=== PATIENT | female | born 1965 | race Caucasian/White ===

== ENCOUNTER → 2019-07-15 | Outpatient (REF) | payer BC ==
[2019-07-15 19:58] LABS: BASO # 0.1 10^3/uL (0.0-0.2); BASO % 0.5 % (0.0-1.0); EOS # 0.3 10^3/uL (0.0-0.5); EOS % 2.2 % (0.0-3.0); HEMATOCRIT 37.6 % (36.0-47.0); HEMOGLOBIN 12.4 g/dl (12.0-15.5); LYMPH # 2.8 10^3/uL (1.5-5.0); LYMPH % 22.4 % (24.0-44.0); MEAN CORPUSCULAR HEMOGLOBIN 33.8 pg (27.0-33.0); MEAN CORPUSCULAR VOLUME 102.5 fl (80.0-96.0); MONO # 1.5 10^3/uL (0.0-0.8); MONO % 11.7 % (0.0-5.0); NEUTROPHILS % 62.7 % (36.0-66.0); PLATELET COUNT, AUTOMATED 272 10^3/uL (150-450); RED BLOOD COUNT 3.67 10^6/uL (4.00-5.40); WHITE BLOOD COUNT 12.7 10^3/uL (4.0-10.0)
[2019-07-15 20:02] LABS: ALBUMIN 3.5 GM/DL (3.2-5.2); BLOOD UREA NITROGEN 11 MG/DL (7-18); CALCIUM LEVEL 8.8 MG/DL (8.5-10.1); CARBON DIOXIDE LEVEL 27 MEQ/L (21-32); CHLORIDE LEVEL 101 MEQ/L (98-107); CREATININE FOR GFR 0.74 MG/DL (0.55-1.30); GLOMERULAR FILTRATION RATE > 60.0 (>51); GLUCOSE, FASTING 84 MG/DL (70-100); PHOSPHORUS LEVEL 3.8 MG/DL (2.5-4.9); SODIUM LEVEL 136 MEQ/L (136-145)
== END ==
LOC: M LAB REF 08:41
PROVIDERS: ATTEND Physician Assistant
DX: I10 Essential (primary) hypertension (principal)

== ENCOUNTER → 2021-12-23 | Outpatient (REF) | payer BC ==
[2021-12-23 12:54] LABS: BASO # 0.1 10^3/uL (0.0-0.2); BASO % 0.6 % (0.0-1.0); EOS # 0.1 10^3/uL (0.0-0.5); EOS % 0.9 % (0.0-3.0); HEMATOCRIT 44.7 % (36.0-47.0); HEMOGLOBIN 14.7 g/dl (12.0-15.5); LYMPH % 20.9 % (24.0-44.0); MEAN CORPUSCULAR HEMOGLOBIN 34.8 pg (27.0-33.0); MEAN CORPUSCULAR HGB CONC 32.9 g/dl (32.0-36.5); MEAN CORPUSCULAR VOLUME 105.7 fl (80.0-96.0); MONO # 0.9 10^3/uL (0.0-0.8); MONO % 9.4 % (2.0-8.0); NEUTROPHILS # 6.5 10^3/uL (1.5-8.5); NEUTROPHILS % 67.8 % (36.0-66.0); PLATELET COUNT, AUTOMATED 223 10^3/uL (150-450); RED BLOOD COUNT 4.23 10^6/uL (4.00-5.40); WHITE BLOOD COUNT 9.6 10^3/uL (4.0-10.0)
[2021-12-23 13:15] LABS: HEMOGLOBIN A1c 5.1 %
[2021-12-23 13:32] LABS: ALBUMIN 4.1 GM/DL (3.2-5.2); ALT/SGPT 53 U/L (12-78); BILIRUBIN,TOTAL 1.3 MG/DL (0.2-1.0); BLOOD UREA NITROGEN 7 MG/DL (7-18); CALCIUM LEVEL 10.2 MG/DL (8.5-10.1); CARBON DIOXIDE LEVEL 30 MEQ/L (21-32); CHLORIDE LEVEL 104 MEQ/L (98-107); CHOLESTEROL LEVEL 239 MG/DL (<200); CHOLESTEROL RISK RATIO 5.195 (<5); CREATININE FOR GFR 0.62 MG/DL (0.55-1.30); FREE T4 1.26 NG/DL (0.76-1.46); GLOMERULAR FILTRATION RATE > 60.0 (>51); GLUCOSE, FASTING 105 MG/DL (70-100); HDL CHOLESTEROL 46 MG/DL (>40); LDL CHOLESTEROL 163 MG/DL (<100); NON-HDL-C 193 MG/DL; POTASSIUM SERUM 4.5 MEQ/L (3.5-5.1); SODIUM LEVEL 138 MEQ/L (136-145); TOTAL PROTEIN 7.9 GM/DL (6.4-8.2); TRIGLYCERIDES LEVEL 149 MG/DL (<150)
[2021-12-23 13:38] LABS: FOLATE 8.5 NG/ML; VITAMIN B12 LEVEL 269 PG/ML
== END ==
LOC: M SFHCPLAZ 10:21
PROVIDERS: ATTEND Physician Assistant
DX: I10 Essential (primary) hypertension (principal); Z13.1 Encounter for screening for diabetes mellitus; F10.10 Alcohol abuse, uncomplicated; E66.3 Overweight; Z13.220 Encounter for screening for lipoid disorders

== ENCOUNTER → 2022-02-16 | Outpatient (CLI) | payer BC | LOC: M RAD 10:13 | PROVIDERS: ATTEND Physician Assistant | DX: F10.10 Alcohol abuse, uncomplicated (principal) ==

== ENCOUNTER → 2022-03-27 | Outpatient (REF) | payer BC | LOC: M SFHCDERM 18:08 | PROVIDERS: ATTEND Nurse Practitioner Family | DX: D22.39 Melanocytic nevi of other parts of face (principal) ==

== ENCOUNTER → 2022-08-24 | Outpatient (REF) | payer BC ==
[2022-08-24 21:15] LABS: APPEARANCE, URINE MANUAL CLOUDY (CLEAR); COLOR, URINE MANUAL YELLOW (YELLOW)
[2022-08-24 21:17] LABS: BILIRUBIN, URINE MANUAL NEGATIVE (NEGATIVE); BLOOD URINE MANUAL POSITIVE (NEGATIVE); GLUCOSE, URINE (UA) MANUAL NEGATIVE (NEGATIVE); KETONE, URINE MANUAL NEGATIVE (NEGATIVE); LEUKOCYTE ESTERASE, URINE MAN TRACE (NEGATIVE); NITRITE, URINE MANUAL NEGATIVE (NEGATIVE); PROTEIN, URINE MANUAL TRACE mg/dL (NEGATIVE); SPECIFIC GRAVITY,URINE MANUAL 1.019 (1.002-1.035); UROBILINOGEN, URINE MANUAL 1 MG mg/dl (NORMAL)
[2022-08-24 21:24] LABS: RBC, URINE 40-50 /hpf (0-3)
[2022-08-24 21:26] LABS: BACTERIA, URINE SMALL AMOUNT; HYALINE CAST, URINE NONE SEEN /lpf (0-1); MUCUS, URINE LARGE AMOUNT (NEGATIVE); SQUAMOUS EPITHELIAL CELL URINE SMALL AMOUNT /hpf (SMALL AMT)
== END ==
LOC: M LAB REF 21:04
PROVIDERS: ATTEND Physician Assistant
DX: R31.29 Other microscopic hematuria (principal)

== ENCOUNTER → 2022-10-18 | Outpatient (REF) | payer BC ==
[2022-10-18 16:48] LABS: BLOOD UREA NITROGEN 7 MG/DL (9-23); CALCIUM LEVEL 9.1 MG/DL (8.5-10.1); CARBON DIOXIDE LEVEL 26 MMOL/L (20-31); CHLORIDE LEVEL 102 MMOL/L (98-107); CREATININE FOR GFR 0.48 MG/DL (0.55-1.30); GLOMERULAR FILTRATION RATE > 60.0 (>51); GLUCOSE, FASTING 83 MG/DL (60-100); POTASSIUM SERUM 3.6 MMOL/L (3.5-5.1); SODIUM LEVEL 142 MMOL/L (136-145)
== END ==
LOC: M SFHCADAM 11:33
PROVIDERS: ATTEND Nurse Practitioner Women's Health
DX: R31.29 Other microscopic hematuria (principal)

== ENCOUNTER → 2022-11-14 | Outpatient (REF) | payer BC | LOC: M SMT 17:08 | PROVIDERS: ATTEND Urology | DX: R82.89 Other abnormal findings on cytological and histological examination of urine (principal); R31.29 Other microscopic hematuria ==

== ENCOUNTER → 2022-11-29 | Outpatient (CLI) | payer BC ==
[~2022-11-29] MED LIST: ISOVUE-370 76% 100ML VIAL As Ordered ONE
== END ==
LOC: M RAD 09:20
PROVIDERS: ATTEND Nurse Practitioner Women's Health
DX: R31.9 Hematuria, unspecified (principal)

== ENCOUNTER → 2022-12-26 | Outpatient (CLI) | payer BC ==
[2022-12-26 14:20] LABS: HEMATOCRIT 43.7 % (36.0-47.0); HEMOGLOBIN 14.7 g/dl (12.0-15.5); MEAN CORPUSCULAR HGB CONC 33.6 g/dl (32.0-36.5); MEAN CORPUSCULAR VOLUME 107.1 fl (80.0-96.0); PLATELET COUNT, AUTOMATED 230 10^3/uL (150-450); RED BLOOD COUNT 4.08 10^6/uL (4.00-5.40); WHITE BLOOD COUNT 11.1 10^3/uL (4.0-10.0)
[2022-12-26 14:32] LABS: INR 1.16
[2022-12-26 14:51] LABS: ALBUMIN 3.8 G/DL (3.2-5.2); ALKALINE PHOSPHATASE 162 U/L (46-116); ALT/SGPT 54 U/L (7.0-40); AST/SGOT 145 U/L (<34); BILIRUBIN,TOTAL 1.7 MG/DL (0.3-1.2); BLOOD UREA NITROGEN 6 MG/DL (9-23); CARBON DIOXIDE LEVEL 26 MMOL/L (20-31); CHLORIDE LEVEL 103 MMOL/L (98-107); CREATININE FOR GFR 0.44 MG/DL (0.55-1.30); GLOMERULAR FILTRATION RATE > 60.0 (>51); GLUCOSE, FASTING 85 MG/DL (60-100); POTASSIUM SERUM 4.1 MMOL/L (3.5-5.1); SODIUM LEVEL 139 MMOL/L (136-145); TOTAL PROTEIN 6.9 G/DL (5.7-8.2)
== END ==
LOC: M RAD 13:24
PROVIDERS: ATTEND Urology
DX: N20.0 Calculus of kidney (principal)

== ENCOUNTER → 2023-01-04 | Outpatient (REF) | payer BC ==
[~2023-01-04] MED LIST changes: +AMLO1TAB24; -ISOVUE-370 76% 100ML VIAL As Ordered ONE; +METO50TA7
== END ==
LOC: M SFHCADAM 13:32
PROVIDERS: ATTEND Family Medicine
DX: K70.0 Alcoholic fatty liver (principal)

== ENCOUNTER → 2023-01-08 | Outpatient (REF) | payer BC, MEDICAID ==
[~2023-01-08] MED LIST changes: +FLOM0.4C39 PO
== END ==
LOC: M SFHCADAM 15:03
PROVIDERS: ATTEND Urology
DX: N20.0 Calculus of kidney (principal)

== ENCOUNTER 2023-01-11 08:42 | Day surgery (SDC) | payer BC ==
[~2023-01-11] VITALS: Ht 167.6 cm; Wt 70.7 kg
[~2023-01-11 08:42] MED LIST changes: -FLOM0.4C39 PO; +ceFAZolin SOD 2 GM in IV 1 EA IV ONE
[2023-01-11] MEDS ORDERED: LR 1,000 ML IV SCH ×2 (09:55→12:15)
[2023-01-11] MEDS ORDERED: LIDOCAINE 2% 5ML JELLY UROJET As Ordered ONE (10:53)
[2023-01-11] MEDS ORDERED: fentaNYL 100 MCG/2 ML INJECTION As Ordered ONE (10:57)
[2023-01-11] MEDS ORDERED: MIDAZOLAM INJ 2MG/2ML VIAL As Ordered ONE (10:58)
[2023-01-11] MEDS ORDERED: ACETAMINOPHEN 1000MG 100ML IV BAG As Ordered ONE (10:58)
[2023-01-11] MEDS ORDERED: ONDANSETRON 4MG 2ML VIAL As Ordered ONE (10:58)
[2023-01-11] MEDS ORDERED: LIDOCAINE 2% 100MG/5ML SDV (FOR ANES.) As Ordered ONE (10:59)
[2023-01-11] MEDS ORDERED: FLOM0.4C39 PO (11:53)
[2023-01-11] MEDS ORDERED: KETOROLAC 60MG 2ML VIAL As Ordered ONE (12:01)
[2023-01-11] MEDS ORDERED: MORPHINE 2 MG/ML 1ML VIAL IV PRN (12:15)
[2023-01-11] MEDS ORDERED: METOCLOPRAMIDE INJ 10MG/2ML VIAL IV PRN (12:15)
[2023-01-11] MEDS ORDERED: oxyCODONE 5MG TAB PO PRN (12:15)
[2023-01-11] MEDS ORDERED: ONDANSETRON 4MG 2ML VIAL IV PRN (12:15)
[2023-01-11] MEDS ORDERED: LABETALOL 100MG/20ML VIAL As Ordered ONE (12:26)
[2023-01-11] MEDS ORDERED: LABETALOL 100MG/20ML VIAL IV ONE (12:45)
[2023-01-11 14:00] VITALS: BP 182/100
== END 2023-01-11 14:00 | disposition home or self-care (01) ==
LOC: M SDC 08:42
PROVIDERS: ATTEND Urology
DX: N20.0 Calculus of kidney (principal); I10 Essential (primary) hypertension; F41.9 Anxiety disorder, unspecified; Z79.899 Other long term (current) drug therapy; F12.10 Cannabis abuse, uncomplicated
CPT/HCPCS: 50590; 52332; 74018; C1769; C2617; J0131; J1100; J1885; J2250; J2405; J3010

== ENCOUNTER → 2023-02-28 | Outpatient (CLI) | payer BC ==
[~2023-02-28] MED LIST changes: +FLOM0.4C39 PO; -ceFAZolin SOD 2 GM in IV 1 EA IV ONE
== END ==
LOC: M RAD 14:59
PROVIDERS: ATTEND Urology
DX: N20.0 Calculus of kidney (principal)

== ENCOUNTER → 2024-07-24 | Outpatient (CLI) | payer BC, MEDICAID, OTHER ==
[2024-07-24 13:18] LABS: BASO # 0.1 10^3/uL (0.0-0.2); BASO % 0.5 % (0.0-1.0); EOS # 0.2 10^3/uL (0.0-0.5); EOS % 1.4 % (0.0-3.0); HEMATOCRIT 41.2 % (36.0-47.0); HEMOGLOBIN 13.7 g/dl (12.0-15.5); LYMPH # 2.6 10^3/uL (1.5-5.0); LYMPH % 21.2 % (24.0-44.0); MEAN CORPUSCULAR HEMOGLOBIN 35.5 pg (27.0-33.0); MEAN CORPUSCULAR HGB CONC 33.3 g/dl (32.0-36.5); MEAN CORPUSCULAR VOLUME 106.7 fl (80.0-96.0); MONO % 8.2 % (2.0-8.0); NEUTROPHILS # 8.3 10^3/uL (1.5-8.5); NEUTROPHILS % 68.3 % (36.0-66.0); PLATELET COUNT, AUTOMATED 252 10^3/uL (150-450); RED BLOOD COUNT 3.86 10^6/uL (4.00-5.40); WHITE BLOOD COUNT 12.1 10^3/uL (4.0-10.0)
[2024-07-24 13:44] LABS: ALBUMIN 3.9 G/DL (3.2-5.2); ALKALINE PHOSPHATASE 141 U/L (46-116); ALT/SGPT 29 U/L (7.0-40); AST/SGOT 67 U/L (<34); BILIRUBIN,TOTAL 1.4 MG/DL (0.3-1.2); BLOOD UREA NITROGEN 21 MG/DL (9-23); CALCIUM LEVEL 9.9 MG/DL (8.5-10.1); CARBON DIOXIDE LEVEL 26 MMOL/L (20-31); CHLORIDE LEVEL 106 MMOL/L (98-107); CHOLESTEROL LEVEL 226 MG/DL (<200); CHOLESTEROL RISK RATIO 3.87 (<5); CREATININE FOR GFR 0.74 MG/DL (0.55-1.30); GLOMERULAR FILTRATION RATE > 60.0 (>51); GLUCOSE, FASTING 92 MG/DL (60-100); HDL CHOLESTEROL 58.3 MG/DL (>40); LDL CHOLESTEROL 148.3 MG/DL (<100); NON-HDL-C 167.7 MG/DL; SODIUM LEVEL 142 MMOL/L (136-145); TRIGLYCERIDES LEVEL 97 MG/DL (<150)
[2024-07-24 13:46] LABS: THYROID STIMULATING HORMONE 3.228 uIU/ML (0.55-4.78)
== END ==
LOC: M PLALAB 11:18
PROVIDERS: ATTEND Nurse Practitioner Family
DX: I10 Essential (primary) hypertension (principal); R00.2 Palpitations; Z11.1 Encounter for screening for respiratory tuberculosis; Z11.59 Encounter for screening for other viral diseases